=== PATIENT | male | born 2000 | race Caucasian/White ===

== ENCOUNTER 2021-08-20 21:10 | Emergency (ER) | payer OTHER ==
[~2021-08-20] VITALS: Ht 180.3 cm; Wt 81.7 kg
[2021-08-20] MEDS ORDERED: AMOCLA875 PO (22:42)
== END 2021-08-20 22:58 | disposition home or self-care (01) ==
LOC: ER 21:10
DX: S61.451A Open bite of right hand, initial encounter (principal); Z23 Encounter for immunization; W54.0XXA Bitten by dog, initial encounter
CPT/HCPCS: 29125; 73130; 90471; 90714; 99283-25; A9270

== ENCOUNTER 2022-02-23 16:24 | Emergency (ER) | payer OTHER ==
[~2022-02-23] VITALS: Ht 180.3 cm; Wt 83.9 kg
[~2022-02-23 16:24] MED LIST: AMOCLA875 PO
[2022-02-23] MEDS ORDERED: HYDR1TAB94 PO (16:53)
[2022-02-23] MEDS ORDERED: ONDA4ODT MM (16:53)
== END 2022-02-23 17:00 | disposition home or self-care (01) ==
LOC: ER 16:24
DX: S93.401A Sprain of unspecified ligament of right ankle, initial encounter (principal); S90.31XA Contusion of right foot, initial encounter; Z76.0 Encounter for issue of repeat prescription; X58.XXXA Exposure to other specified factors, initial encounter; Y92.9 Unspecified place or not applicable; Z79.899 Other long term (current) drug therapy
CPT/HCPCS: 99283; A9270